=== PATIENT | female | born 1930 | race Caucasian/White ===

== ENCOUNTER 2018-02-13 21:25 | Emergency (ER) | payer MEDICARE ==
[~2018-02-13] VITALS: Ht 160 cm; Wt 80.3 kg
[~2018-02-13 21:25] MED LIST: AMARYL4 MG PO; BETAPACE AF80 MG PO; COZAAR 25 MG TA25 M2 PO; GLUCOPHAGE1000 MG PO; LEVOTHYROXINE0.05 MG PO; NOVOLOG100 UNIT/1; PRADAXA150 MG PO; PREDNISONE 20 M20 M1 PO
[2018-02-13 21:57] LABS: ABSOLUTE EOSINOPHILS 0.1 thou/uL (0.0-0.7); ABSOLUTE LYMPHOCYTES 2.7 thou/uL (0.8-5.3); ABSOLUTE MONOCYTES 0.5 thou/uL (0.0-1.2); ABSOLUTE NEUTROPHILS 7.3 thou/uL (1.6-8.1); BASOPHILS 0.4 %; EOSINOPHILS 0.6 %; HEMATOCRIT 43.5 % (37.0-47.0); HEMOGLOBIN 13.9 gm/dL (12.0-15.0); LYMPHOCYTES 25.4 %; MCH 29.6 pg (26.0-34.0); MCHC 31.9 g/dL (28.0-37.0); MCV 92.8 fL (80.0-100.0); MONOCYTES 4.5 %; MPV 8.5 fl. (7.2-11.1); NUCLEATED RBCS 0 /100WBC; PLATELET COUNT* 273 thou/uL (150-400); POLYS 69.1 %; RBC 4.69 mil/uL (4.20-5.00); RDW-CV 14.5 % (10.5-14.5); WBC 10.6 thou/uL (4.0-11.0)
[2018-02-13 22:06] LABS: CALCIUM 10.7 mg/dL (8.5-10.1); CREATININE 1.4 mg/dL (0.6-1.3); POTASSIUM 3.3 mmol/L (3.5-5.1)
[2018-02-13 22:11] LABS: ALBUMIN 3.1 g/dL (3.4-5.0); TOTAL BILIRUBIN 0.5 mg/dL (<0.1-1.0); TOTAL PROTEIN 7.2 g/dL (6.4-8.2)
[2018-02-13 22:14] LABS: POC CA IONIZED 5.5 mg/dL (4.5-5.3); POC HEMOGLOBIN 15.3 g/dL (12.0-17.0); POC POTASSIUM 3.3 mmol/L (3.5-4.9)
[2018-02-13 22:18] LABS: APTT 23.6 Seconds (25.0-31.3); INR 1.1; PROTIME 11.4 Seconds (9.20-11.50)
[2018-02-13 22:19] LABS: BE -17.6 mmol/L (-2 to +3); PCO2 30.7 mmHg (35.0-45.0)
[2018-02-13 22:20] LABS: HCO3 10.1 mmol/L (22.0-26.0); PO2 164.7 mmHg (75.0-100.0); pH 7.137 (7.340-7.450)
[2018-02-13 23:15] VITALS: BP 000/00
--- NOTE | 2018-02-14 13:20 | EKG ---
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
--- NOTE | 2018-02-14 13:21 | EKG ---
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
== END 2018-02-13 23:15 ==
LOC: M.ERS 21:25
PROVIDERS: Emergency Medicine
DX: I50.9 Heart failure, unspecified (principal); J96.90 Respiratory failure, unspecified, unspecified whether with hypoxia or hypercapnia